=== PATIENT | male | born 2000 | race Hispanic/Latino ===

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

== ENCOUNTER 2022-04-08 11:28 | Emergency (ER) | payer OTHER ==
[~2022-04-08] VITALS: Ht 185.4 cm; Wt 93.0 kg
[2022-04-08 12:40] VITALS: BP 128/71
== END 2022-04-08 13:25 | disposition left against medical advice (07) ==
LOC: EDH 11:28
DX: R07.89 Other chest pain (principal); R00.2 Palpitations
CPT/HCPCS: 93005